=== PATIENT | female | born 1950 | race Caucasian/White ===

== ENCOUNTER 2017-03-04 08:04 | Inpatient (IN) | payer MEDICARE ==
--- NOTE | ~2017-03-04 | DS ---
Unit #: [id number] #: [id number] Patient: GATITO GREEN [id number] [address] [address] [id number] I MR#: [id number] NAME: GATITO GREEN ROOM: 47 Age: 67 Sex: F Admission Date: 03/04/2017 : 1950 Discharge Date: 03/14/2017 Attending Physician: Nida Robins M.D. Primary Care Physician: Mike Cruz M.D. DISCHARGE SUMMARY ADDENDUM Please note, this is an addendum to a previously initiated transfer of care summary done on 03/08/2017. ADDITIONAL PROCEDURES Left ienzc-wxp-rdeq amputation revision and wound closure on 03/12/2017. HOSPITAL COURSE Since last dictation, the patient has done well. With opening of the wound and several days of antibiotic therapy, the patient's leukocytosis resolved. She underwent revision of her fphdn-kmr-zpwe amputation and wound closure on 03/12/2017. Postoperatively she has done well with minimal blood loss. All signs of infection have essentially resolved. The patient has remained afebrile. Plan is to continue a few more days of IV antibiotics and the patient will be discharged to rehab with plans for likely transition to long-term care afterward. DISCHARGE CONDITION Stable. DISCHARGE DISPOSITION Discharge to rehab. DISCHARGE MEDICATIONS 1. Zosyn 3.375 g IV 1.8 h., to stop after doses on 03/16/2017. 2. Percocet 5/325 mg 1-2 tablets p.o. q.4 h. p.r.n. pain. 3. Levemir 7 units subcutaneous at bedtime. 4. NovoLog medium dose sliding scale. 5. Quinapril 5 mg daily. 6. Colace 100 mg b.i.d. 7. Metoprolol tartrate 12.5 mg b.i.d. 8. Celexa 20 mg daily. 9. Neurontin 600 mg p.o. t.i.d. DISCHARGE INSTRUCTIONS 1. The patient is instructed to have her cast remain in place upon discharge. 2. She should follow a constant carb diet. 3. She should continue Accu-Cheks morning and evening. 4. She can increase her activity as tolerated under the care of physical therapy and occupational therapy. 5. She will have a PICC remain in place until after last dose of IV antibiotics. Unit #: [id number] #: [id number] Patient: GATITO GREEN FOLLOWUP 1. The patient should follow up with Dr. Sage in approximately 10 days. Will need cast removed at that time. 2. She will follow up with facility director upon evaluation as well. Dictated by... Nida Robins M.D. DOMINICK/kaylan TD: 03/14/2017 08:20 JOB #: [id number] DISCHARGE SUMMARY Page 1 of 1 X Nida Robins MD X DISCHARGE SUMMARY
--- NOTE | ~2017-03-04 | CR126 ---
[facility] A Service of [facility] & [facility] RADIOLOGY TEXT RESULTS PATIENT: GATITO GREEN LOCATION: [facility] [id number] : 48 UNIT #: [id number] AGE: [address]: La Young MD SEX: F ORDER DR: [id number] [facility] [address] [facility]. [place], [place] [address] [id number] E MR#: [id number] Acc #: [id number] NAME: GATITO GREEN : 1950 SEX: F STUDY DATE/TIME: 03/04/2017 09:47 UNIT: DONALD ROOM: STUDY DESCRIPTION: CR Foot Complete Min 3 View Lt Attending Physician: Vangie Valencia A.P.R.N. Ordering Physician: Ed Doctor [id number] [facility] Primary Care Physician: Mike Cruz M.D. MEDICAL IMAGING REPORT This report is preliminary unless electronic signature is present EXAM Left foot 3 views 03/04/2017 0947 hours HISTORY 67-year-old with history of diabetes and recent fall. Patient has painful open wound on top of foot. COMPARISON 09/29/2016 foot film and MRI. FINDINGS The bones are diffusely osteopenic. There is an old healed distal fifth metatarsal fracture without change. There appears to be an open wound on the medial dorsal aspect of the foot near the tarsometatarsal junction adjacent to the first tarsometatarsal joint. There is lucency at the proximal aspect of the first metatarsal subjacent to the open wound representing a change from the appearance on 09/29/2016 and concerning for osteomyelitis. IMPRESSION 1. There is an open wound on the skin in the medial dorsal aspect at the level of the tarsometatarsal junction. Subjacent to the skin lesion, there is lucency at the proximal aspect of the first metatarsal representing a change from the appearance on 09/29/2016 and concerning for osteomyelitis. Consider followup MRI. The toes are difficult to assess given the degree of flexion on these views. 2. Old healed distal fifth metatarsal fracture. STAT * RESULT Dictated by... [facility] A Service of [facility] & [facility] RADIOLOGY TEXT RESULTS PATIENT: GATITO GREEN LOCATION: [employer] [facility] [id number] : [birth year] UNIT #: [id number] AGE: [address]: La Young MD SEX: F ORDER DR: Rachel Tran M.D. THIS IS AN ELECTRONICALLY VERIFIED REPORT Rachel Tran M.D. at 03/04/2017 2:29 PM NIRMALA/pankaj TD: 03/04/2017 10:39 JOB #: [id number] MEDICAL IMAGING REPORT Page 1 of 1 COPY
--- NOTE | ~2017-03-04 | EKG ---
PATIENT: GATITO GREEN UNIT #: [id number] Ventricular Rate: 74 BPM Atrial Rate: 74 BPM P-R Interval: 184 ms QRS Duration: 120 ms Q-T Interval: 532 ms QTC Calculation(Bezet): 590 ms Calculated R [place]: 31 degrees Calculated T [place]: -32 degrees Diagnosis Line: Unusual P axis, possible ectopic atrial rhythm Diagnosis Line: Inferior infarct , age undetermined Diagnosis Line: Nonspecific ST and T wave abnormality Diagnosis Line: Abnormal ECG Diagnosis Line: When compared with ECG of 04-MAR-2017 14:04, Diagnosis Line: Inferior infarct is now Present Diagnosis Line: ST no longer depressed in Anterior leads Diagnosis Line: T wave inversion no longer evident in Diagnosis Line: Anterolateral leads Diagnosis Line: QT has lengthened Diagnosis Line: Confirmed by TERA FELIX MD ([id number]) on Diagnosis Line: 03/05/2017 10:13:57 PM INTERPRETING MD: LILI
--- NOTE | ~2017-03-04 | FU ---
[facility] Nutrition Therapy DATE: 03/08/17 Patient: GATITO GREEN Physician: TONY Address: [address] Room/Bed: [address] [place] [address], Zip: [place] [address] Admit Date: 03/04/17 Date of : 48 Height: 5 4 Weight: 138 63 NUTRITION MONITORING/FOLLOW-UP: Reason: Nutrition follow-up Admitting dx: 67 y/o female admitted with L foot infection Anthropometrics: Ht: 62", admission wt: 63.5 kg, current wt: 65 kg, BMI: 25.6 (overweight) Labs: Glucose 153, POC 148, A1C 7.9 (03/05/17), AST 80 (03/05/17), Na/K/Mg WNL, Phos unmeasured Meds: Novolog (medium SSI), Levemir, IV Abx, Zofran/Phenergan prn, Milk of Mg, Colace, Kcl, MgSO4 GI: Last BM 03/03 (small), no N/V/D at this time Skin: BKA LLE, redness buttocks, no edema Estimated Nutrition Needs: Increased due to L BKA, 2 points malnutrition risk score Assessment: Chart reviewed, events noted. Patient agreed to amputation and underwent left BKA yesterday, 03/07/17. She is on 2L nasal cannula, sleeping at time of RD visit to room and unable to locate RN. Physical chart reviewed. No BM x 5 days, is on bowel regimen. She is tolerating CC diet, has Ensure ordered but no flavor or frequency is specified. RD changing to chocolate Glucerna TID based on hx DM, hyperglycemia and elevated A1C. See nutrition dx, goals and recs as stated below. Will continue to evaluate post-op oral intake, suspect current intake is suboptimal given condition, recent surgery and scored 1 point on the malnutrition risk screen for eating poorly upon admission. Dx: Inadequate protein energy intake r/t decreased appetite, PMH AEB RN report poor intake, 2 points malnutrition risk screen - ACTIVE Intervention: Glucerna shakes TID, bowel regimen Monitoring, Evaluation and Goals: 1. Oral intake > 50% of meals and ONS - NOT MET, IN PROGRESS 2. Labs WNL - IN PROGRESS (mild hyperglycemia noted) 3. Maintain weight status - IN PROGRESS (down 0.5 kg since admission but had BKA) 4. Promote wound healing - IN PROGRESS (L BKA 03/07) No new goals to add at this time [facility] Nutrition Therapy DATE: 03/08/17 Patient: GATITO GREEN Physician: TONY Address: [address] [place] [address] Room/Bed: [address] [place] [address], Zip: [place] [address] Admit Date: 03/04/17 Date of : 48 Height: 5 4 Weight: 138 63 Monitor: Per protocol, criteria to determine if above goals met Recommendations: 1. Continue consistent carb diet, appreciate staff to encourage adequate oral intake, especially of protein-rich foods. Please wake for meals. 2. RD changing oral nutrition supplement from Ensure (no frequency or flavor ordered) to chocolate Glucerna TID. Patient has increased nutrient needs. 3. Please weigh q 3 days for monitoring purposes. 4. Wound care prn. 5. Continue bowel regimen. If hyperglycemia persists consider changing SSI to high correction scale. Status: Moderate nutrition risk Respectfully, Rakel Gore, RD, LD Food and Nutritional Services [facility] cc: client file
--- NOTE | ~2017-03-04 | TOC ---
Unit #: [id number] #: [id number] Patient: GATITO GREEN [id number] [address] [place], [place] [address] [id number] I MR#: [id number] NAME: GATITO GREEN ROOM: 568 Age: 67 Sex: F Admission Date: 03/04/2017 : 1950 Attending Physician: Nida Robins M.D. Primary Care Physician: Mike Cruz M.D. TRANSFER OF CARE SUMMARY PRINCIPAL DIAGNOSES 1. Sepsis secondary to methicillin sensitivity Staph aureus and Strep agalactiae abscess and cellulitis of the left foot and calf, status post left below the knee amputation. 2. Diabetes mellitus type 2, insulin requiring and uncontrolled with hemoglobin A1c of 7.9. 3. Nonanion gap metabolic acidosis. 4. Hypokalemia. 5. Vascular dementia. 6. Peripheral arterial disease. 7. Anemia, status post transfusion of one unit of packed red blood cells. 8. Coronary artery disease. 9. Severe protein malnutrition. CONSULTANTS Dr. Sage, orthopedic surgery; Dr. Cedeno, infectious disease, Dr. Padilla, cardiology; Dr. Kohler, vascular surgery. PROCEDURE 1. Left BKA, left open on 03/07/2017. 2. Left lower extremity graft surveillance ultrasound revealing left femoral to popliteal artery bypass with elevated velocities of the common femoral artery and proximal anastomosis. 3. X-ray of left foot on 03/04/2017 with a large open wound in the medial dorsal aspect at the tarsometatarsal junction. Lucency of the first metatarsal representing osteomyelitis, old healed distal left fifth metatarsal fracture. 4. Chest x-ray on 03/04/2017 with hyperinflation of the lungs, granulomatous disease noted with ROBERT revealing moderate arterial insufficiency of the right lower extremity and mild arterial insufficiency of the left lower extremity. 5. MRI of the left foot with and without contrast on 03/04/2017 with shallow wound and ulcerations on the dorsum of the hindfoot with extensive tracking into the distal ankle on foot and up into the leg. There is a 6.4 cm fluid collection in the medial submalleolar region. It extends into the deeper soft tissue of the midfoot in the region of the cuneiforms and tracking plantar to the first metatarsal shaft. This was consistent with cellulitis and abscess. Osteomyelitis of the sesamoids, particularly laterally is probable. CLINICAL HISTORY AND HOSPITAL COURSE Ms. Green is a 67-year-old female with a history of uncontrolled diabetes and prior skin infections who presents to the Unit #: [id number] #: [id number] [facility] initially with altered mental status and subsequently found to have significant erythema and pus from the left foot. Please refer to H and P for further details. X-ray of the left foot in the emergency department revealed probable osteomyelitis. This is in conjunction with a significant leukocytosis with a white blood cell count of 34.4. The patient was subsequently admitted. Dr. Sage was consulted and upon clinical review of patient in combination with her MRI as noted above, it was recommended she undergo BKA. Patient initially refused BKA and then vacillated for approximately 60 hours before ultimately deciding to undergo BKA. She underwent this on the evening of 03/07/2017. Unfortunately the wound had be left open due to a significant amount of pus in the anterior compartment and the plan is for closure of the wound in the next four to five days[address]. Cedeno evaluated the patient, is currently being maintained on Zosyn. Wound cultures were growing Strep agalactiae group B in addition to MSSA. I will note with amputation antibiotics, white blood cell count is not decreasing. Cardiology was consulted for cardiac evaluation preoperatively and from a cardiac standpoint patient has done well. Patient is being maintained on insulin therapy in regards to her sugars and sugars are currently stable. Patient was transfused one unit of packed red blood cells with surgery. Will followup hemoglobin closely. Patient does have some underlying vascular dementia of which patient's family is aware. Will monitor this during hospitalization. Further hospital course to be dictated as an addendum. Dictated by... Nida Robins M.D. DOMINICK/vahe TD: 03/08/2017 11:30 JOB #: [id number] TRANSFER OF CARE SUMMARY Page 1 of 1 X Nida Robins MD TRANSFER OF CARE SUMMARY
--- NOTE | ~2017-03-04 | CO ---
Unit #: [id number] #: [id number] Patient: GATITO GREEN [id number] [address] [place], [place] [address] [id number] I MR#: [id number] NAME: GATITO GREEN ROOM: 568 Age: 67 Sex: F Admission Date: 03/04/2017 : 1950 Attending Physician: La Young M.D. Primary Care Physician: Mike Cruz M.D. CONSULTATION REPORT This is Marion Ramirez APRN, dictating a vascular surgery consult for physician, Dr. Kohler. REASON FOR CONSULTATION Peripheral vascular disease and new wound to left foot. HISTORY OF PRESENT ILLNESS This is a 67-year-old female who came to the emergency room with complaints of left foot pain. She has a wound to her dorsal aspect of her left foot. She states just opened two days ago. She had a known great toe wound and had a left femoral popliteal above-knee bypass with graft by Dr. Angeles, on October 04, 2016. He had followed up in office and was recommended a great toe amputation, but declined and has not followed up since. Information obtained from the chart states that the son had been changing the dressing to her left foot on March 01, he noticed that she was confused and that the dressing on her foot seemed a little tight. At that point, he removed the dressing and noticed the new foot wound. PAST MEDICAL HISTORY 1. PAD. 2. Diabetes. 3. Dementia. 4. Hypertension. 5. Chronic anemia. 6. Congestive heart failure. 7. Coronary artery disease. 8. History of cerebrovascular accident. 9. History of osteomyelitis. ALLERGIES 1. Sulfa. 2. Ibuprofen. HOME MEDICATIONS 1. Plavix 75 mg daily. 2. Accupril 10 mg daily. 3. Colace 100 mg twice daily. 4. Levemir 15 units subcutaneously at bedtime. 5. Celexa 20 mg daily. 6. Neurontin 600 mg t.i.d. Unit #: [id number] #: [id number] Patient: GATITO GREEN SOCIAL HISTORY The patient lives with her son. She smokes half pack of cigarettes a day. Denies alcohol or illicit drug use. FAMILY HISTORY No family history of diabetes. REVIEW OF SYSTEMS CONSTITUTIONAL: No fever, chills, or sweats. EYES: No recent visual problems. ENT: No ear pain, nasal congestion, or sore throat. RESPIRATORY: No shortness of breath. No cough. CARDIOVASCULAR: No chest pain, palpitations, or syncope. GASTROINTESTINAL: No nausea, vomiting, or diarrhea. GENITOURINARY: No hematuria. HEMATOLOGIC/LYMPHATIC: Negative for bruising. No swollen lymph glands. ENDOCRINE: No excessive thirst or hunger. MUSCULOSKELETAL: No back pain, neck pain, or joint pain. Has pain in her left foot and decreased range of motion at the left ankle due to pain. INTEGUMENTARY: She has an open wound with wet gangrene to the dorsal aspect of the left foot. NEUROLOGIC: She is alert and oriented x2, unsure of year. PSYCHIATRIC: No anxiety, depression, or suicidal thoughts. PHYSICAL EXAMINATION VITAL SIGNS: Her temperature is 98.1, heart rate 98, respiratory rate 16, and blood pressure is 154/81. GENERAL APPEARANCE: She is a frail female, lying on the stretcher in a position. HEENT: Normocephalic. Pupils are equal, round, and reactive to light. NECK: Supple and nontender without lymphadenopathy. No masses or thyromegaly. No carotid bruits noted. CARDIAC: Regular rate and rhythm. No murmurs. LUNGS: Clear to auscultation. ABDOMEN: Positive bowel sounds. Soft, nontender, and nondistended. No masses. MUSCULOSKELETAL: Moves all extremities except for the left foot, which is limited due to the pain. Normal muscular development. EXTREMITIES: Upper extremities, no deformity noted and no edema. Lower extremities, she has a right great toe amputation. Left foot dorsal aspect has an open wound with green drainage, no odor noted. No signal noted to PT, DP. VASCULAR: She has palpable femoral pulses bilaterally, but weaker on the left. Palpable popliteal on the right than on the left. Unable to obtain signal in the posterior tibial and DP of the left foot due to the pain. INTEGUMENTARY: Skin is warm and dry. She has an open wound to the dorsal aspect of the left foot with green drainage. No hemosiderin deposition. NEUROLOGIC: Cranial nerves II through XII intact. Normal strength and sensation in the upper extremities. Lower is unequal due to the pain in the left leg. PSYCHIATRIC: She is oriented to person and place, but disoriented to time. DIAGNOSTIC STUDIES ABIs and graft scan. LABORATORY RESULTS: Glucose is 176, BUN is 27, creatinine is 1.0, chloride 105, CO2 of 16, sodium is 135, and potassium 2.7. White blood cell count 34.4, hemoglobin 10.8, hematocrit 33.4, and platelet count is Unit #: [id number] #: [id number] Patient: GATITO GREEN. ASSESSMENT AND PLAN She has peripheral arterial disease with nonhealing wound to the left foot with wet gangrene. ABIs and graft scan ordered of the left leg. We will discuss further treatment with attending. Dictated by... Sasha Galicia/ventura TD: 03/05/2017 14:12 JOB #: [id number] CONSULTATION REPORT Page 1 of 1 X Olga Kohler MD X CONSULTATION REPORT
--- NOTE | ~2017-03-04 | DS ---
Unit #: [id number] #: [id number] Patient: GATITO GREEN [id number] [address] [address] [id number] I MR#: [id number] NAME: GATITO GREEN ROOM: 47 Age: 67 Sex: F Admission Date: 03/04/2017 : 1950 Discharge Date: Attending Physician: Nida Robins M.D. Primary Care Physician: Mike Cruz M.D. DISCHARGE SUMMARY ADDENDUM Please note medications have been adjusted per ID. We are going to discontinue Zosyn and place the patient on Augmentin 875 mg p.o. b.i.d. through March 23, 2017, and PICC line will be discontinued prior to discharge. Dictated by... Sasha Oliveros/jarett TD: 03/14/2017 11:18 JOB #: [id number] DISCHARGE SUMMARY Page 1 of 1 X Nida Robins MD X DISCHARGE SUMMARY
--- NOTE | ~2017-03-04 | FU ---
[facility] Nutrition Therapy DATE: 03/13/17 Patient: GATITO GREEN Physician: TONY Address: [address] Room/Bed: [address] [place] [address], Zip: [place] [address] Admit Date: 03/04/17 Date of : 48 Height: 5 4 Weight: 143 65 NUTRITION MONITORING/FOLLOW-UP: Reason: PT SEEN FOR FOLLOW-UP DX: (L) FOOT INFECTION Anthropometrics: 5'2", WT: 143# (65 KG), BMI: 26.2 -WEIGHTS HAVE BEEN STABLE SINCE ADMIT Labs: GLU: 134, NA+:132, CA+:7.7, ALB: 1.7 (03/05/17), A1c: 7.9 (03/05/17) Meds: ZOFRAN, PHENERGAN, MILK OF MAGNESIA, NOVOLOG MED SSI, LEVEMIR, COLACE, KCL, MAG SULFATE, LOPRESSOR I&O's: 2230/1676, 1 BM NOTED Skin: (L) BKA LLE EDEMA: RLE GENERALIZED EDEMA; BUE 1+ EDEMA Estimated Nutrition Needs: INCREASED NEEDS 2' (L) BKA Assessment: CHART REVIEWED AND EVENTS NOTED. PT SEEN FOR FOLLOW-UP. PT SLEEPY/LETHARGIC AT TIME OF VISIT. LUNCH TRAY AT BEDSIDE HAS NOT BEEN TOUCHED YET. FAMILY IN ROOM REPORT PT TO HAVE DECREASED PO INTAKE 2' DECREASED APPETITE. THIS RD ENCOURAGED ADEQUATE KCAL AND PROTEIN INTAKE FOR HEALING AND RECOVERY. PER [employer], ENSURE HAS BEEN GIVEN (NO FLAVOR OR FREQUENCY SPECIFIED), PT AND DAUGHTER REQUEST GLUCERNA MIKE, RD TO RE-ORDER. PT AND FAMILY REPORTED NO DIET QUESTIONS AT THIS TIME. RD TO CONTINUE TO FOLLOW. Dx: INADEQUATE PROTEIN-ENERGY INTAKE R/T DECREASED APPETITE, PMH AEB RN REPORT POOR INTAKE, 2 NUTRITION MALNUTRITION SCREEN SCORE.-ACTIVE INADEQUATE PROTEIN-ENERGY INTAKE R/T DECREASED APPETITE, PMH, CURRENT CONDITION AEB FAMILY REPORT ABOVE. Intervention: 1. CC DIET 2. D/C ENSURE SHAKES 3. GLUCERNA SHAKES TID (JIM) Monitoring, Evaluation and Goals: 1. ORAL INTAKE >50% OF MEALS AND ONS-NOT MET, IN PROGRESS 2. LABS WNL-IN PROGRESS 3. MAINTAIN WEIGHT STATUS; IN PROGRESS 4. PROMOTE WOUND HEALING-IN PROGRESS (L BKA 03/07/17) NO NEW GOALS AT THIS TIME [facility] Nutrition Therapy DATE: 03/13/17 Patient: GATITO GREEN Physician: TONY Address: [address] Room/Bed: [address] [place] [address], Zip: [place] [address] Admit Date: 03/04/17 Date of : 48 Height: 5 4 Weight: 143 65 MONITOR: -PO INTAKE/APPETITE -WEIGHTS -SUPPLEMENT INTAKE Recommendations: 1. APPRECIATE FAMILY AND STAFF TO ENCOURAGE ADEQUATE PO INTAKE, ESPECIALLY PROTEIN SOURCES. PLEASE WAKE FOR MEALS. 2. PLEASE D/C ENSURE SHAKES. ADD GLUCERNA SHAKES TID W/MEALS FOR ADDITIONAL PROTEIN AND KCAL NEEDS 3. PLEASE WEIGH PT q 3 DAYS FOR MONITORING PURPOSES 4. WOUND CARE PRN RD WILL F/U PER PROTOCOL PT IS MODERATELY COMPROMISED Respectfully, MIC SCHROEDER MS, RD, LD Food and Nutritional Services [facility] cc: client file
--- NOTE | ~2017-03-04 | US136 ---
[facility] A Service of [facility] RADIOLOGY TEXT RESULTS PATIENT: GATITO GREEN LOCATION: [facility] 472- : [birth year] UNIT #: [id number] AGE: [address]: Nida Robins MD SEX: F ORDER DR: [id number] [facility] [address] [facility] [place], [place] [address] [id number] I MR#: [id number] Acc #: [id number] NAME: GATITO GREEN : 1950 SEX: F STUDY DATE/TIME: 03/04/2017 15:45 UNIT: [facility] ROOM: [facility] STUDY DESCRIPTION: US U/L Ext [employer] Bilat Attending Physician: Nida Robins M.D. Ordering Physician: Eleuterio Angeles M.D. Primary Care Physician: Mike Cruz M.D. MEDICAL IMAGING REPORT This report is preliminary unless electronic signature is present EXAM Bilateral lower extremity ROBERT. HISTORY Peripheral arterial disease; left foot wound. FINDINGS The right brachial pressure was not obtained. The left was 122. Right dorsalis pedis pressure is 71, posterior tibial is 78, for an ROBERT of 0.64, and a right first toe pressure was not obtained. Left dorsalis pedis pressure is 104, posterior tibial is 108, for an ROBERT of 0.89 and a left first toe pressure was not obtained. PVR wave form at the right ankle is significantly diminished, as compared to the more normal-appearing left ankle wave form. Arterial wave forms of the dorsalis pedis and posterior tibial arteries are biphasic at both bilateral. IMPRESSION 1. Moderate arterial insufficiency of the right lower extremity, based on ROBERT and wave forms. 2. Mild arterial insufficiency of the left lower extremity, based on ROBERT and wave forms. Dictated by... Olga Kohler M.D. THIS IS AN ELECTRONICALLY VERIFIED REPORT Olga Kohler M.D. at 03/13/2017 8:00 AM [facility] A Service of [facility] RADIOLOGY TEXT RESULTS PATIENT: GATITO GREEN LOCATION: [facility] 472-01 : [birth year] UNIT #: [id number] AGE: [address]: Nida Robins MD SEX: F ORDER DR: Mynor TD: 03/05/2017 20:19 JOB #: [id number] MEDICAL IMAGING REPORT Page 1 of 1 COPY
--- NOTE | ~2017-03-04 | OR ---
Unit #: [id number] #: [id number] Patient: GATITO GREEN [id number] [address] [place], [place] [address] [id number] I MR#: [id number] NAME: GATITO GREEN ROOM: 47 Date of Procedure: 03/12/2017 Admission Date: 03/04/2017 Surgeon: Luis Carlos Sage M.D. : 1950 Attending Physician: Nida Robins M.D. Primary Care Physician: Mike Cruz M.D. OPERATIVE REPORT PREOPERATIVE DIAGNOSIS Open left lccud-cpg-vxzb amputation. POSTOPERATIVE DIAGNOSIS Open left lswmo-orr-weqs amputation. PROCEDURE PERFORMED Left hkdzz-vjs-jvrq amputation revision and wound closure ([id number]). ASSISTANTS Sasha Santiago; Sasha Willis; and OSCAR Roper. ANESTHESIA General. INDICATIONS FOR SURGERY The patient is a 67-year-old diabetic female who had a history of left foot gangrene, who underwent open left stikn-pkq-kfct amputation 5 days ago. She is now ready for wound closure. DESCRIPTION OF PROCEDURE The patient was taken to the operating room and placed in supine position. General anesthetic was induced. The left leg was identified as the correct operative extremity during the time-out procedure. The IV antibiotic protocol was not followed because she was on preoperative antibiotics. The left leg was then prepped and draped in the usual sterile fashion. The leg was exsanguinated and a thigh tourniquet inflated to 300 mmHg. All necrotic tissue was sharply excised. The anterior skin was excised for an additional 3 cm. The tibia was then exposed with subperiosteal dissection and an additional 4 cm of tibia were cut with the sagittal saw. The anterior distal tibia was beveled with the saw. The fibula was then exposed subperiosteally and cut 2 cm shorter than the tibia. The tourniquet was released. Bleeding was controlled with electrocautery. A medium Hemovac drain was placed. The posterior muscle fascia was repaired to the anterior periosteum of the tibia and the anterior muscle fascia with multiple 0 Vicryl rryhvh-he-wapxo sutures. Subcutaneous tissue was closed with 2-0 Vicryl. Skin was closed with skin donal. Xeroform gauze, dressing, sponges, cast padding, and a long leg fiberglass cast was applied. The patient was then transported to the recovery room in stable condition. Unit #: [id number] #: [id number] Patient: GATITO GREEN ESTIMATED BLOOD LOSS Minimal. COMPLICATIONS None. SPECIMENS None. TOURNIQUET TIME Approximately 20 minutes. Dictated by.Sasha Snowden/ventura TD: 03/13/2017 07:39 JOB #: [id number] OPERATIVE REPORT Page 1 of 1 X Tam Sage MD X PROCEDURE OPERATIVE NOTE
--- NOTE | ~2017-03-04 | CR72 ---
[facility] A Service of [facility] RADIOLOGY TEXT RESULTS PATIENT: GATITO GREEN LOCATION: C5 568-01 : 48 UNIT #: [id number] AGE: [address]: Nida Robins MD SEX: F ORDER DR: [id number] [facility] [address] [facility]. [place], [place] [address] [id number] I MR#: [id number] Acc #: [id number] NAME: GATITO GREEN : 1950 SEX: F STUDY DATE/TIME: 03/04/2017 14:04 UNIT: CEDOF ROOM: 90990 STUDY DESCRIPTION: CR Chest Single View Portable Attending Physician: La Young M.D. Ordering Physician: La Young M.D. Primary Care Physician: Mike Cruz M.D. MEDICAL IMAGING REPORT This report is preliminary unless electronic signature is present EXAM Portable chest x-ray, 03/04/2017. HISTORY MD order couple days ago. Short of air, left foot infection, diabetic. Symptoms began a couple days ago. Smoker 47 years. Diabetic. Mild heart attack. TECHNIQUE AP radiograph of the chest is presented. COMPARISON 09/28/2016 FINDINGS Stable mild to moderate cardiac enlargement. The lungs appear somewhat hyperinflated, likely reflecting underlying COPD in this patient with a history of tobacco usage. No evidence of acute pulmonary disease, pleural effusion, or pneumothorax. No suspicious nodule. Healed granulomatous disease seen. The bony structures show no acute abnormality. Dictated by... Bala Garcia M.D. THIS IS AN ELECTRONICALLY VERIFIED REPORT Bala Garcia M.D. at 03/07/2017 8:26 AM NORMAN/panda TD: 03/04/2017 16:40 JOB #: [id number] [facility] A Service of [facility] RADIOLOGY TEXT RESULTS PATIENT: GATITO GREEN LOCATION: [facility] 568-01 : 48 UNIT #: [id number] AGE: [address]: Nida Robins MD SEX: F ORDER DR: MEDICAL IMAGING REPORT Page 1 of 1 COPY
--- NOTE | ~2017-03-04 | EKG ---
PATIENT: GATITO GREEN UNIT #: [id number] Ventricular Rate: 88 BPM Atrial Rate: 89 BPM QRS Duration: 118 ms Q-T Interval: 372 ms QTC Calculation(Bezet): 450 ms Calculated R [place]: 59 degrees Calculated T [place]: 111 degrees Diagnosis Line: Unusual P axis, possible ectopic atrial rhythm Diagnosis Line: with occasional Premature ventricular complexes Diagnosis Line: Non-specific intra-ventricular conduction delay Diagnosis Line: Nonspecific ST and T wave abnormality Diagnosis Line: Abnormal ECG Diagnosis Line: When compared with ECG of 06-OCT-2016 06:23, Diagnosis Line: T wave inversion now evident in Inferior leads Diagnosis Line: Inverted T waves have replaced nonspecific T wave Diagnosis Line: abnormality in Lateral leads Diagnosis Line: QT has shortened Diagnosis Line: Confirmed by TERA FELIX MD ([id number]) on Diagnosis Line: 03/04/2017 10:56:05 PM INTERPRETING MD: LILI
--- NOTE | ~2017-03-04 | CO ---
Unit #: [id number] #: [id number] Patient: GATITO GREEN [id number] [address] [place], [place] [address] [id number] I MR#: [id number] NAME: GATITO GREEN ROOM: 568 Age: 67 Sex: F Admission Date: 03/04/2017 : 1950 Attending Physician: Nida Robins M.D. Primary Care Physician: Mike Cruz M.D. CONSULTATION REPORT REASON FOR CONSULTATION Antibiotic management in a patient with severe left foot wound. HISTORY OF PRESENT ILLNESS This is a 67-year-old female who came to the emergency room because her son was reporting that she had increasing confusion and worsening foot wound for approximately 1 week. The patient does not recall coming to the hospital. She is a diabetic with uncontrolled blood sugars and has a history of peripheral vascular disease as well. The patient does not have any family at her bedside right now and history is obtained via the chart and discussion with the patient. The patient's wound on her left foot is severe. There is significant wet gangrene and tenderness and the patient refuses sqwao-xxk-ywss amputation which has been recommended to her by both the orthopedic surgeon and the vascular team which is following this patient. It appears the patient has had some vascular intervention in the past. It appears the orthopedist notes that she has had a long-term first metatarsal head ulcer/wound since 07/2016 that he has been doing wound care to. The patient, however, one week ago developed a significant wound on the dorsal aspect of her left foot. On admission the patient was noted to have some leukocytosis, weakness and some confusion. The patient is status post left femoral popliteal bypass in 09/2016. She has also had a recent MRI this admission that showed multiple fluid collections and question able septic MTP joint. The patient has maintained on vancomycin and Zosyn and infectious disease was asked to evaluate for antibiotic management as the patient is adamantly refusing a febud-oqd-ndhi amputation. PAST MEDICAL HISTORY 1. Insulin dependent diabetes. 2. Peripheral vascular disease. 3. Dementia. 4. Hypertension. 5. Chronic anemia. 6. Congestive heart failure. 7. Coronary artery disease. 8. Stroke. 9. Right helix osteomyelitis, status post amputation. 10. Left foot MTP joint sepsis in the past. PAST SURGICAL HISTORY 1. Right great toe amputation. 2. Throat surgery. 3. Left femoral popliteal bypass. 4. Cardiac catheterization. Unit #: [id number] #: [id number] Patient: GATITO GREEN SOCIAL HISTORY The patient lives alone, but has good family support. She denies any tobacco or alcohol abuse. ALLERGIES Sulfa and ibuprofen. CURRENT MEDICATIONS The patient is currently on vancomycin and Zosyn. For further medications, please refer to the patient's MAR. REVIEW OF SYSTEMS The patient continues to tell me that she would like to eat and drink and not have surgery. Otherwise it is very limited to get review of systems. PHYSICAL EXAMINATION GENERAL: This is a no-apparent distress female who is laying in the bed and appears slightly confused. VITALS: Temperature 98.0, pulse 82, blood pressure 121/63 and respiratory rate 18. HEENT: Pupils are sluggish. NECK: Supple. LUNGS: Clear to auscultation bilaterally with no wheezes or rhonchi noted. HEART: S1 and S2 with tachycardia. ABDOMEN: Positive bowel sounds. Nontender. EXTREMITIES: Left foot has a large dorsal wound that has significant purulence and slough. There is no significant odor. On the plantar surface there is a large ulcer near her first MTP/great toe. DIAGNOSTIC STUDIES IMAGING: MRI of the foot, please see full report for complete details. In summary, shallow wound/ulcer along the dorsum of the hindfoot that tracks even to the distal ankle and foot with a 6.4 cm fluid collection that extends deeper into the soft tissues, consistent with extensive cellulitis and tracking abscess. Possible necrotizing fasciitis. Ulceration of the foot and metatarsal head with tracking with fluid, concerning for septic arthritis of the first MTP joint, osteomyelitis of the sesamoids is possible, tenosynovitis, tibiotalar effusion indeterminate of septic arthritis. Chest x-ray no active pulmonary disease. LABORATORY: BUN 22, creatinine 0.9, sodium 135, potassium 3.0, chloride 110, CO2 16, bilirubin 1.4, AST 80, ALT 37, alkaline phosphatase 121, lactic acid 0.9, vancomycin trough 22.7, white blood cell count 23,000, which is improved from 34,000 on admission. Hemoglobin 8, hematocrit 24.9, platelets 470. Urinalysis shows white blood cell count 5-10, negative bacteria, 1+ leukocytes and negative nitrates. Microbiology, urine culture is negative. Blood cultures are negative. Foot culture shows staph aureus, (final ID is pending) and group B strep. IMPRESSION/PLAN This is a 67-year-old diabetic female with extensive peripheral arterial disease and vascular disease. Per the chart, the patient has an ROBERT of Unit #: [id number] #: [id number] Patient: GATITO GREEN 0.89. The patient has large left dorsal foot wound and foot exudate and slough, concerning for wet gangrene and an ulcer on the plantar surface and of the first great toe. MRI is consistent with multiple fluid collections, cellulitis, possible necrotizing fasciitis and questionable osteomyelitis of the first MTP joint. At this time the patient does not have any bacteremia. Wound cultures are showing both staph aureus and group B strep. Will continue to follow along with the final identification of the staph infection. At this time I agree with orthopedic surgery and vascular as well as the admitting team that the best course of action would be extensive surgery and ghksz-kdy-qrbh amputation. At this time, per the chart and per discussion with the patient, the patient refuses a cwhzj-tfc-biok amputation or surgery. Without surgical intervention, resolution of this infection is doubtful. The patient may become septic and toxic. Will continue to treat left foot wound as wet gangrene, abscess and possible septic MTP joint with possible necrotizing fasciitis as per the orthopedic note. The wound continuous is getting worse. Will continue vancomycin and Zosyn at this time. Will discuss with Dr. Diego Nelson the role of antibiotics and if long-term antibiotics would even be beneficial at this time. Thank you for allowing us to participate in the care of this patient. Further recommendations to follow pending the patient's clinical course. Dictated by... Jenelle Rosas A.P.R.N. for Sasha Umaña TD: 03/06/2017 08:18 JOB #: [id number] CONSULTATION REPORT Page 1 of 1 X X CONSULTATION REPORT
--- NOTE | ~2017-03-04 | CO ---
Unit #: [id number] #: [id number] Patient: GATITO GREEN [id number] [address] [place], [place] [address] [id number] MR#: [id number] NAME: GATITO GREEN ROOM: 568 Age: 67 Sex: F Admission Date: 03/04/2017 : 1950 Attending Physician: La Yougn M.D. Primary Care Physician: Mike Cruz M.D. Consultation Date: 03/04/2017 CONSULTATION REPORT CHIEF COMPLAINT Left foot infection. HISTORY OF PRESENT ILLNESS The patient is a 67-year-old female, who lives alone, who presents to the emergency room today with a 1-week history of increasing left foot infection. She has a previous history of poorly controlled diabetes, peripheral vascular disease, coronary artery disease, CHF, stroke, and dementia. She is accompanied by her son, who is a good historian. He notes that she has had a wound under her first metatarsal head since 07/2016 and home health care has been addressing this additionally. The patient's son and tt-puyatbkm-hg-law have also been applying Medihoney to the foot. One week ago, the patient then developed a significant wound over the dorsal aspect of the left foot and the son noted that she was confused. She was then taken to the emergency room today. She was found to have a white blood cell count of 34,000. The patient has difficulty walking and has generalized weakness, and she is a very poor historian. Of concern is that she underwent recent left femoral popliteal bypass in 09/2016 and she also underwent recent cardiac catheterization which shows coronary artery disease and an ejection fraction of 45%. Orthopedic consultation is requested for the left foot. PAST MEDICAL HISTORY Remarkable for insulin-dependent diabetes, peripheral vascular disease, dementia, hypertension, chronic anemia, congestive heart failure, coronary artery disease, history of stroke, history of right hallux osteomyelitis, status post hallux amputation, and recent admission for left foot first MTP joint sepsis. PAST SURGICAL HISTORY Remarkable for right great toe amputation, throat surgery, left femoral popliteal bypass, and cardiac catheterization. HOME MEDICATIONS Plavix, Accupril, Colace, Levemir insulin, Celexa, Neurontin, and Glucotrol. ALLERGIES Sulfa and ibuprofen. SOCIAL HISTORY The patient lives alone although the son checks on her several times a day. She denies tobacco or alcohol use. Unit #: [id number] #: [id number] Patient: GATITO GREEN REVIEW OF SYSTEMS Unremarkable except for baseline dementia. PHYSICAL EXAMINATION GENERAL: This is an elderly female, who appears older than her stated age. VITAL SIGNS: Temperature 98.1, blood pressure 143/89, pulse 98, respirations 14. Height 5 feet and 4 inches. Weight 150 pounds. EXTREMITIES: Examination of the left foot shows wet gangrene of the dorsal forefoot and midfoot with about an 8 cm diameter full-thickness skin loss with exposed necrotic tendons. She also has a 1 cm diameter plantar ulcer underlying the first metatarsal head. Pulses are absent. Sensation is intact to light touch. The patient has significant pain with palpation of the foot, ankle, and calf. I suspect she has infection tracking into her legs. DIAGNOSTIC STUDIES Left foot x-ray show lucency at the base of the first metatarsal consistent with possible osteomyelitis. LABORATORY DATA Admission labs, hemoglobin 10.8, hematocrit 33.4, white blood cell count 34,400 with 91% polys and 2% lymphocytes. IMPRESSION 1. Left foot wet gangrene. 2. Peripheral vascular disease, on Plavix. 3. History of stroke. 4. Coronary artery disease. 5. Congestive heart failure. 6. Insulin-dependent diabetes. PLAN 1. Await MRI of the left foot. 2. Await results of arterial brachial indices. 3. The patient most likely requires a flbik-hqy-cokx amputation. The patient adamantly refuses any amputation at the bed side. I have advised the patient and her son, this is potentially life threatening due to her leukocytosis, pain, and calf swelling. The patient understands. We will follow closely during this admission and make further recommendations as warranted. Dictated by... Luis Carlos Sage M.D. AISHA/ventura TD: 03/05/2017 16:10 JOB #: [id number] CC: Luis Carlos Sage M.D. Unit #: [id number] #: [id number] Patient: GATITO GREEN CONSULTATION REPORT Page 1 of 1 X Tam Sage MD CONSULTATION REPORT
--- NOTE | ~2017-03-04 | CO ---
Unit #: [id number] #: [id number] Patient: GATITO GREEN [id number] [place], [place] [address] [id number] I MR#: [id number] NAME: GATITO GREEN ROOM: 568 Age: 67 Sex: F Admission Date: 03/04/2017 : 1950 Attending Physician: La Young M.D. Primary Care Physician: Mike Cruz M.D. Consultation Date: 03/04/2017 CONSULTATION REPORT REASON FOR CONSULTATION Preoperative clearance. HISTORY OF PRESENT ILLNESS This is 67-year-old white female, previously known to our group with a past medical history of; 1. Admission to [facility] on 09/28/2016 through 10/08/2016 for sepsis with the left first metatarsophalangeal septic arthritis; DKA; and peripheral artery disease, status post left femoral-popliteal bypass. 2. Complicated hospital course with acute kidney injury, toxic metabolic encephalopathy, hypernatremia, and probable dementia. 3. A 2D echocardiogram 10/02/2016, revealed an ejection fraction 40% to 45. Inferolateral hypokinesis. Mild tricuspid regurgitation. Small pericardial effusion versus fat pad. 4. Coronary artery disease, status post cardiac catheterization on 10/03/2016, which revealed ejection fraction of 45%. Left main is normal. LAD is 50% involving the second diagonal. Distal to the second diagonal 60% to 70%. Left circumflex is 99% in proximal third. First obtuse marginal is 99%. LAD is 100%. PDA with collateral flow. PLV is 90%. Distal right coronary artery 99%. Marginal branch of left circumflex is less than 1.5 mm in diameter and not amenable to angioplasty or stent. Right coronary artery is occluded and fills by retrograde left to right collaterals. PLV of right coronary artery is not bypassable. Medical therapy. 5. Hypertension. 6. Diabetes mellitus type 2, uncontrolled. 7. Dementia, likely vascular in origin. 8. Chronic anemia. 9. Chronic non-anion gap metabolic acidosis secondary to renal tubular acidosis. 10. Chronic systolic congestive heart failure. 11. History of cerebrovascular accident reportedly a couple of years ago. 12. History of osteomyelitis, status post right great toe amputation. 13. Active tobacco abuse. PAST SURGICAL HISTORY 1. Cardiac catheterization. 2. Right great toe amputation. 3. Left femoral leoyl-pri-srnw popliteal bypass. 4. Throat surgery. HOME MEDICATIONS 1. Plavix 75 mg p.o. daily. Unit #: [id number] #: [id number] Patient: GATITO GREEN 2. Quinapril 10 mg p.o. daily. 3. Colace 100 mg p.o. b.i.d. 4. Levemir 15 units subcutaneous at bedtime. 5. Celexa 20 mg p.o. daily. 6. Neurontin 600 mg p.o. three times daily. 7. Glipizide 5 mg p.o. daily. ALLERGIES Sulfa, ibuprofen, and latex. SOCIAL HISTORY The patient lives in a private residence. She uses a walker to ambulate. She continues to actively smoke cigarettes, but will not tell me how much. She has smoked for approximately 47 years. There are no reports of alcohol or illicit drug use. FAMILY HISTORY Noncontributory. REVIEW OF SYSTEMS A 10-point review of systems is negative except for the details noted above. Please note that the patient was not forthcoming with all information and information was obtained with the help of her son. PHYSICAL EXAMINATION VITAL SIGNS: Temperature 98.4, pulse is 90, and blood pressure 107/55. CONSTITUTIONAL: This is a 67-year-old, white female, and in no distress. SKIN: Warm and dry. NECK: Supple. No jugular venous distention. No hepatojugular reflux. Normal carotid upstrokes. No carotid bruits auscultated. HEART: S1 and S2. No murmurs, rubs, or gallops. LUNGS: Bilateral breath sounds. Have occasional rhonchi. Scattered rhonchi in the left lung. Respirations are even and nonlabored. No rales or wheezes. ABDOMEN: Soft, nontender, and nondistended. Positive bowel sounds auscultated x4 quadrants. No ascites noted. EXTREMITIES: Bilateral lower extremities have no pretibial pitting edema. DP and PT pulses are 2+. Capillary refill is less than 2 seconds. DIAGNOSTIC STUDIES LABORATORY RESULTS: White blood cell count 34.4, hemoglobin 10.8, hematocrit 33.4, and platelets 420. Sodium 135, potassium 2.7, chloride 105, CO2 is 16, BUN 27, creatinine 1.0, and glucose 176. AST 45, ALT 26, and alkaline phos 98. Urinalysis with 1+ leuk esterase, 3+ protein, and 2+ blood. IMAGING STUDIES: Chest x-ray is pending. CARDIOVASCULAR STUDIES: Electrocardiogram revealed accelerated junctional rhythm with PVC. Ventricular rate , 88 beats per minute. Nonspecific ST-T wave changes. QTc is 450 milliseconds. IMPRESSION 1. Left foot ulcer. 2. Leukocytosis, rule out sepsis. 3. Rule out pneumonia. 4. Status post fall. 5. Peripheral artery disease with history of left femoral-popliteal Unit #: [id number] #: [id number] Patient: GATITO GREEN bypass. 6. Coronary artery disease, status post cardiac catheterization on 10/03/2016 with multivessel disease, managed medically. 7. Left ventricular ejection fraction, 45%. 8. Chronic systolic congestive heart failure. 9. Hypertension. 10. Diabetes mellitus, type 2. 11. Active tobacco abuse. 12. Diabetes. 13. Hypokalemia. 14. Anemia. 15. Accelerated junctional rhythm. PLAN 1. The patient presented to the hospital after sustaining a fall. She was noted to have left foot pain with a large ulcer with purulent drainage. 2. Vascular and Orthopedic Surgery were consulted. Cardiology was consulted for preoperative clearance in case surgery is needed. 3. The patient denies chest pain and there is no evidence of congestive heart failure on exam. 4. She is okay to undergo surgery at an acceptable risk if needed. 5. She is on a low-dose beta-emily with parameters. Her Accupril has been decreased. 6. Chest x-ray has been ordered to rule out pneumonia. 7. The patient was on Plavix at home and this has been held in case surgery is needed. I could consider adding an aspirin and statin due to known coronary artery disease. Dictated by... VEGA Downs/ventura TD: 03/05/2017 14:08 JOB #: [id number] CONSULTATION REPORT Page 1 of 1 X X CONSULTATION REPORT
--- NOTE | ~2017-03-04 | MR58 ---
[facility] A Service of [facility] RADIOLOGY TEXT RESULTS PATIENT: GATITO GREEN LOCATION: [facility] 568-01 : 48 UNIT #: [id number] AGE: [address]: La Young MD SEX: F ORDER DR: [id number] [facility] [address]. [place], [place] [address] [id number] I MR#: [id number] Acc #: [id number] NAME: GATITO GREEN : 1950 SEX: F STUDY DATE/TIME: 03/04/2017 21:06 UNIT: [facility] ROOM: [facility] STUDY DESCRIPTION: MR Foot WWo Contrast Lt Attending Physician: La Young M.D. Ordering Physician: La Young M.D. Primary Care Physician: Mike Cruz M.D. MRI CENTER REPORT This report is preliminary unless electronic signature is present. EXAM MRI left distal lower leg, ankle, and hindfoot without and with IV contrast 03/04/2017 HISTORY Order states MRI with and without IV contrast left foot. History sheet states left foot infection. Midfoot covered in sores. Sore mid distal lower leg. Left foot pain for 4 days with open sores in the midfoot. Surgery left great toe previously. No reported trauma. Diabetic. Diabetic neuropathy. FINDINGS There is multifocal subtle suspected skin irregularity and/or wounds along the dorsal aspect of the hindfoot. The largest presumed wound or ulceration measures 1.2 cm in transverse dimension. Tracking from the superficial wounds or ulcerations is extensive nonenhancing subcutaneous space subcutaneous soft tissue compatible with complex signal fluid/tracking abscess and/or underperfused or nonperfused soft tissue. The abnormality has a more typical fluid signal medially superficial to the flexor tendons at the level of the submalleolar segment. This potential abscess or developing abscess measures at least 6.4 cm AP. There is a small amount of underlying fluid in the posterior tibial tendon sheath. Mild septic tenosynovitis is possible. The tracking subcutaneous space fluid and/or underperfused/nonperfused soft tissue tracks into the lower leg beyond the margin of the images. There is also distal tracking of the nonenhancing fluid and/or nonperfused/underperfused soft tissue into the forefoot predominantly in the medial aspect and surrounding the cuneiforms and metatarsal bases. There is no obvious susceptibility signal or signal void to suggest soft tissue gas. Nevertheless, necrotizing fasciitis and/or extensive cellulitis could have this appearance. [facility] A Service of [facility] RADIOLOGY TEXT RESULTS PATIENT: GATITO GREEN LOCATION: [facility] 568-01 : 48 UNIT #: [id number] AGE: [address]: La Young MD SEX: F ORDER DR: This tracking fluid and/or underperfused/nonperfused soft tissue tracks into the plantar medial forefoot to the level of the midshaft of the first metatarsal. There is also skin loss suggestive of a wound or ulceration of the medial aspect of the forefoot at the level of the first metatarsal head and first MTP joint. There is a nonenhancing tracking fistulous tract and/or necrotic tissue extending to potentially communicate with the first MTP joint. First MTP joint septic arthritis is a concern. There is marrow edema but no T1 marrow replacement at the first MTP joint and no definite evidence of osteomyelitis of the first metatarsal head or proximal phalanx. There is however marked abnormal signal with T1 marrow replacement of the lateral sesamoid and prominent abnormal signal of the medial sesamoid raising the possibility of sesamoid osteomyelitis. There is no fracture. No dislocation or definite neuropathic arthrosis is seen. There is advanced muscle atrophy throughout the ankle and foot. There is nonenhancing fluid involving the extensor tendon sheaths in the lower leg, ankle and hindfoot concerning for septic tenosynovitis. There is a mild nonspecific tibiotalar effusion. There is mild synovial enhancement. Septic arthritis is not excluded. No tendon tear is noted. IMPRESSION 1. Apparent shallow wound/ulcerations along the dorsum of the hindfoot with extensive tracking nonenhancing complex signal fluid and/or underperfused/nonperfused soft tissue extending from the distal dorsal lower leg into the distal ankle and foot. There is an at least 6.4 cm (AP) fluid collection in the medial submalleolar region. The process extends into the deeper soft tissues of the midfoot predominantly in the region of the cuneiforms with tracking plantar to the first metatarsal shaft. Findings are compatible with extensive cellulitis and tracking abscess and/or nonperfused/underperfused soft tissue. Correlate for necrotizing fasciitis. No obvious gas is identified. 2. Apparent additional skin wound or ulceration medial to the first metatarsal head with a tracking nonenhancing fluid and/or underperfused/nonperfused soft tissue extending to probably involving the first MTP joint. Findings are concerning for septic arthritis of the first MTP. The first MTP joint is arthropathic. Osteomyelitis of the sesamoids (especially lateral) is possible. 3. Tenosynovitis of the anterior extensor tendons extending into the lower leg could reflect infectious tenosynovitis. 4. Tibiotalar effusion with mild synovial enhancement is indeterminate [facility] A Service of [facility] RADIOLOGY TEXT RESULTS PATIENT: GATITO GREEN LOCATION: [facility] 568-01 : 48 UNIT #: [id number] AGE: [address]: La Young MD SEX: F ORDER DR: for definite septic arthritis. Consider aspiration as clinically warranted. 5. No fracture or definite evidence of neuropathic arthropathy. 6. Advanced fatty atrophy of the muscles most commonly due to chronic neuropathy. 7. No fracture. 8. Findings called directly to Dr. Robins of [facility] on 03/05/2017 at 09:45 a.m. STAT * RESULT Dictated by... Antonieta Christine M.D. THIS IS AN ELECTRONICALLY VERIFIED REPORT Antonieta Christine M.D. at 03/05/2017 11:17 AM ERICA/pankaj TD: 03/05/2017 10:46 JOB #: [id number] MRI CENTER REPORT Page 1 of 1 COPY
--- NOTE | ~2017-03-04 | HP ---
Unit #: [id number] #: [id number] Patient: GATITO GREEN [id number] [address] [place], [place] [address] [id number] MR#: [id number] NAME: GATITO GREEN ROOM: Age: 67 Sex: F Admission Date: 03/04/2017 : 1950 Attending Physician: Vangie Valencia A.P.R.N. Primary Care Physician: Mike Cruz M.D. HISTORY AND PHYSICAL CHIEF COMPLAINT Foot infection. HISTORY OF PRESENT ILLNESS The patient is a 67-year-old female with past medical history of diabetes, peripheral arterial disease, hypertension, chronic anemia, coronary artery disease, CHF, cerebrovascular accident, who presented to the emergency department for evaluation of the above. History is obtained from chart review and discussion with the ER staff. The patient is a poor historian. History is also obtained from the patient's son, Gildardo Green, who is at the bedside. The patient has apparently had a wound on the plantar surface of her left foot since approximately July of 2016. Home health has been seeing the patient regarding this wound. They come about once a week. However, per the son, the patient does not always answer the door. He is at work so their care has been somewhat intermittent in nature. The family has been putting "antibiotic honey" on the wound, although the patient's son states that home health did not recommend that particular treatment because it was not prescribed by a physician. The patient's son's ex-girlfriend reportedly changed the dressing to the foot on February 27, 2017 and applied the "antibiotic honey". The following day (February 28) the patient's son thought that the bandage appeared somewhat tight and so he replaced the bandage again applying the "antibiotic honey". The patient's son then noted that she seemed somewhat confused on March 01, 2017. He states that it is similar to when her blood sugar has been high in the past. He did not, however, check the blood sugar but he did administer insulin. On March 01, the patient was noted to have decreased appetite. He thought that her speech was somewhat abnormal. He, again attributed this to abnormal blood sugar. Yesterday, she "seemed better". Today, the patient complained of foot pain. The patient's son noticed that the bandage over the foot was somewhat blood soaked. He removed the bandage and noticed that there was now a wound involving the dorsal aspect of the foot. She was brought to the emergency department for further evaluation. There is a possible history of trauma to the foot. The patient's son noticed an overturned chair on March 01, 2017. It is unclear the circumstances of the fall. Again, the patient is a very poor historian. There is no report of fever. She has had some difficulty walking and increased generalized weakness. Upon arrival in the emergency department, the patient's temperature is 96.7. Blood pressure 106/70. Left foot x-ray was done and showed findings concerning for osteomyelitis involving the first metatarsal of the left foot. She was given vancomycin in the emergency department. Dr. Sage agreed to see the patient in consultation. She is being admitted to [facility] for evaluation Unit #: [id number] #: [id number] Patient: GATITO GREEN and further treatment. PAST MEDICAL HISTORY 1. Admission to [facility], September 28, 2016 through October 08, 2016, for sepsis secondary to left first metatarsophalangeal septic arthritis with group B strep with associated cellulitis of the left foot. She was seen in consultation by Vascular and underwent left femoral gtspm-xac-uvnl popliteal bypass on October 05, 2016. She was also seen in consultation by Dr. Padilla of Cardiology. She underwent cardiac catheterization, October 03, that showed an ejection fraction of 45% with LAD noted to have proximal 60 to 70% stenosis. Left circumflex was approximately 90%, 100% of of the obtuse marginal. Right coronary was 100% proximally. The plan per the discharge summary was to allow the foot wound to heal and to have further evaluation as an outpatient. It does not appear that she has followed up with Cardiology. She did see Vascular on one occasion but has not followed up as recommended. 2. Peripheral arterial disease status post left femoropopliteal bypass. 3. Diabetes. The patient's hemoglobin A1C was 15.3 during previous admission. 4. Dementia, likely vascular in origin. The patient's son states that she does not typically know the year but typically knows where she is and who she is. 5. Hypertension. 6. Chronic anemia. 7. Chronic nonanion gap metabolic acidosis secondary to renal tubular acidosis. 8. Congestive heart failure with ejection fraction of 45% noted on cardiac catheterization in September of 2016. 9. Coronary artery disease with cardiac catheterization results noted above. 10. History of cerebrovascular accident. 11. History of osteomyelitis status post toe amputation of the right great toe. PAST SURGICAL HISTORY 1. Right great toe amputation. 2. Throat surgery. 3. Left femoral zpikb-efl-qrpq popliteal bypass. 4. Cardiac catheterization with results as noted above. SOCIAL HISTORY The patient lives with her son. There is no tobacco or alcohol use. FAMILY HISTORY There is no family history of diabetes. ALLERGIES Sulfa and Ibuprofen. HOME MEDICATIONS 1. Plavix 75 mg daily. 2. Accupril 10 mg daily. 3. Colace 100 mg twice daily. 4. Levemir 15 units subcu at bedtime. 5. Celexa 20 mg daily. 6. Neurontin 600 mg t.i.d. Unit #: [id number] #: [id number] Patient: GATITO GREEN 7. Glucotrol 5 mg daily. REVIEW OF SYSTEMS A complete review of systems is negative except as indicated in the HPI but somewhat limited from the patient due to baseline dementia. PHYSICAL EXAMINATION GENERAL APPEARANCE: The patient is a female who is awake and alert, appears older than the stated age. VITAL SIGNS: Temperature 96.7. Pulse 76. Respirations 14. Blood pressure 106/70. Oxygen saturation 97% on room air. HEENT: The head is atraumatic. Mucous membranes are moist. NECK: Supple. Trachea is midline. CARDIOVASCULAR: Regular rate and rhythm. LUNGS: Clear to auscultation bilaterally with no increased work of breathing. ABDOMEN: Soft, nontender with bowel sounds present in all four quadrants. EXTREMITIES: The right great toe has been previously amputated. The left foot demonstrates a large open area with purulent base in a background of erythema, warmth and tenderness to palpation. There is also an approximately 3 cm circular wound on the plantar aspect of the left foot. I am unable to palpate dorsalis pedis nor posterior tibial pulses. NEUROLOGIC: The patient is oriented to person and place. She follows commands. PSYCHIATRIC: She demonstrates a flat affect but is cooperative. SKIN: Demonstrates the previously described abnormalities. DIAGNOSTIC STUDIES Complete blood count notable for WBC count of 34.4, hemoglobin 10.8, hematocrit 33.4. Comprehensive metabolic panel notable for potassium of 2.7. CO2 was 16. Anion gap is 14. Glucose 176, BUN and creatinine 27 and one respectively. ALT is 45, alkaline phosphatase 28, albumin 2.3. Left foot x-ray shows findings concerning for osteomyelitis involving the first metatarsal of the left foot. Urinalysis notable for 1+ leukocyte esterase, 3+ protein, 2+ blood with 10 to 25 RBCs, 5 to 10 WBCs. Lactic acid is one. ASSESSMENT The patient is a 67-year-old female with: 1. Left foot diabetic ulcer/cellulitis. The patient received vancomycin in the emergency department. 2. Osteomyelitis involving the first metatarsal of the left foot. Dr. Sage has agreed to see the patient in consultation. 3. History of peripheral arterial disease status post left femoropopliteal bypass. The patient has not followed up with Vascular. I am unable to palpable pulses today. 4. Hypokalemia. 5. Hypertension. 6. Chronic anemia. The patient's hemoglobin was 9.6 on October 08, 2016. It is 10.8 today. 7. Coronary artery disease as noted on cardiac catheterization. The patient has not followed up with Cardiology. 8. Congestive heart failure with an ejection fraction of 45% noted on cardiac catheterization done in September of 2016. 9. History of cerebrovascular accident. 10. Dementia. PLAN Unit #: [id number] #: [id number] Patient: GATITO GREEN 1. Admit to intermediate level. 2. NPO except medications until seen by Dr. Sage. 3. Blood cultures x2. 4. Wound culture and sensitivity. 5. Vancomycin IV and Zosyn IV for ulcer and possible osteomyelitis pending further workup. 6. Consult Dr. Angeles regarding peripheral arterial disease. 7. Check magnesium level. 8. Replace potassium. 9. EKG and chest x-ray as part of preoperative evaluation. 10. Check INR. 11. PRN Dilaudid. 12. PRN Zofran. 13. Consult Dr. Padilla regarding cardiac clearance. 14. Low dose sliding scale insulin with Accu-Cheks. 15. Repeat labs including magnesium in the morning. 16. Sepsis protocol with repeat lactic acid. 17. Additional workup and consultants based on above. Dictated by LaSasha Harper TD: 03/04/2017 13:32 JOB #: [id number] HISTORY AND PHYSICAL Page 1 of 1 X La Young MD HISTORY AND PHYSICAL
--- NOTE | ~2017-03-04 | US83 ---
[facility] A Service of [facility] RADIOLOGY TEXT RESULTS PATIENT: GATITO GREEN LOCATION: [facility] 472-01 : [birth year] UNIT #: [id number] AGE: [address]: Nida Robins MD SEX: F ORDER DR: [id number] [facility] [address]. [place], [place] [address] [id number] I MR#: [id number] Acc #: [id number] NAME: GATITO GREEN : 1950 SEX: F STUDY DATE/TIME: 03/04/2017 UNIT: [facility] ROOM: [facility] STUDY DESCRIPTION: US LE [employer] Attending Physician: Nida Robins M.D. Ordering Physician: Eleuterio Angeles M.D. Primary Care Physician: Mike Cruz M.D. MEDICAL IMAGING REPORT This report is preliminary unless electronic signature is present REVISED REPORT DATE OF EXAM 03/04/17 REFERRING PROVIDER Eleuterio Angeles MD REASON FOR EXAM Peripheral arterial disease, history of left fem-pop bypass graft. EXAM Left lower extremity graft surveillance ultrasound. FINDINGS The left common femoral artery is the inflow vessel that appears to be widely patent and a velocity of 258 cm/sec. The profunda femoral artery is widely patent with a velocity of 69 cm/sec. The bypass graft is noted from proximal to distal and appears to be widely patent throughout its course. The proximal anastomosis velocity is 235 cm/sec, mid-thigh graft velocity 98 cm/sec and distal anastomosis velocity 106 cm/sec. Outflow via the popliteal artery is patent with a velocity of 343 cm/sec, posterior tibial artery at the ankle 88 cm/sec, and anterior tibial artery 83 cm/sec. IMPRESSION Patent left femoral to popliteal artery bypass with slightly elevated velocities at the common femoral artery and proximal anastomosis, as well as the outflow and the popliteal artery concerning for possible stenosis. There is patent outflow via the tibial vessels with normal velocities and waveforms. [facility] A Service of [facility] RADIOLOGY TEXT RESULTS PATIENT: GATITO GREEN LOCATION: [facility]- : [birth year] UNIT #: [id number] AGE: [address]: Nida Robins MD SEX: F ORDER DR: *FACILITY MODIFIED. Dictated by... Olga Kohler M.D. THIS IS AN ELECTRONICALLY VERIFIED REPORT Olga Kohler M.D. at 03/13/2017 7:59 AM VIR[place]/edmond TD: 03/05/2017 20:38 JOB #: [id number] CC: Red/rosenda Please Delete MEDICAL IMAGING REPORT Page 1 of 1 COPY
--- NOTE | ~2017-03-04 | OR ---
Unit #: [id number] #: [id number] Patient: GATITO GREEN [id number] [address] [place], [place] [address] [id number] I MR#: [id number] NAME: GATITO GREEN ROOM: 568 Date of Procedure: 03/07/2017 Admission Date: 03/04/2017 Surgeon: Luis Carlos Sage M.D. : 1950 Attending Physician: Nida Robins M.D. Primary Care Physician: Mike Cruz M.D. OPERATIVE REPORT PREOPERATIVE DIAGNOSIS Left foot gangrene. POSTOPERATIVE DIAGNOSIS Left foot gangrene with extension of infection up into left proximal calf. PROCEDURE PERFORMED Left open wyxup-oqp-icto amputation ([id number]). ASSISTANTS MD Jack and Mary Jo. ANESTHESIA General. INDICATIONS FOR SURGERY The patient is a 67-year-old female with insulin-dependent diabetes, peripheral vascular disease, and left foot peripheral neuropathy, presents with severe left foot gangrene. MRI documents an abscess tracking into the lower leg. She has resisted treatment with amputation for the past three days and has not relented. She now has a leukocytosis and erythema and swelling into the calf. The patient has an unsalvageable foot and therefore to undergo yyyxx-vvc-dpgr amputation. DESCRIPTION OF PROCEDURE The patient was taken to the operating room and placed in supine position. General anesthetic was induced. A time-out was performed identifying the left foot as the correct operative extremity. She was placed under general anesthetic. The IV antibiotic protocol was not followed, because she was on preoperative IV antibiotics. The left leg was then prepped and draped in the usual sterile fashion. The leg was exsanguinated with gravity and the thigh tourniquet inflated to 250 mmHg. A transverse incision was made in the mid tibia 14 cm distal to the knee. The subcutaneous tissue was divided. Pus was obtained from the anterior compartment. Aerobic and anaerobic cultures were taken. The tibia was exposed subperiosteally. The sagittal saw was then used to cut the tibia in line with the skin incision. The anterior distal edge was beveled with the saw. The anterior compartment was divided. The anterior vessels were then doubly ligated with 0 silk. The fibula was then exposed subperiosteally and cut 2 cm proximal to the tibia with the microsagittal saw. The amputation knife was then used to divide the posterior soft tissues. The tibial vessels were doubly ligated with 0 silk. The tibial Unit #: [id number] #: [id number] Patient: GATITO GREEN nerve was dissected meticulously and cut proximal to the tibia. The peroneal vessels could not be located. The tourniquet was released. There was essentially no bleeding from the leg. The leg was then irrigated with 2 L of normal saline with care taken to irrigate the anterior compartment. The wound was then packed with Betadine-soaked gauze and the wound was left open. Dressing, sponges, cast padding, and a posterior long leg fiberglass splint were applied. Caleb wraps were applied. The patient was then transported to the recovery room in stable condition. ESTIMATED BLOOD LOSS None. COMPLICATIONS None. SPECIMENS Left leg cultures and left leg. TOURNIQUET TIME Approximately 15 minutes. PLAN The patient will return to the operating room in approximately 4 to 5 days for wound closure and revision of the amputation. Dictated bySasha Perez/ventura TD: 03/07/2017 20:51 JOB #: [id number] OPERATIVE REPORT Page 1 of 1 X Tam Sage MD X PROCEDURE OPERATIVE NOTE
--- NOTE | ~2017-03-04 | A ---
[facility] Nutrition Therapy DATE: 03/05/17 Patient: GATITO GREEN Physician: TONY Address: [address] Room/Bed: [address] [place] [address], Zip: [place] [address] Admit Date: 03/04/17 Date of : [birth year] Height: 5 4 Weight: 139 63.5 NUTRITIONAL ASSESSMENT: REASON: 2 POINTS NUTRITION SCREEN RISK RE: WOUND/ ULCER AND EATING POORLY 67 yo female admitted for foot infection, osteomyelitis PMH: DM, PAD, HTN, chronic anemia, CAD, CHF, CVA, CAD, osteomyelitis s/p right great toe amputation Anthropometrics: Ht: 62" Wt: 63.5 kg BMI: 25.6 Labs: K+ 2.9 Gluc 188 BUN 28 Ca++ 8.3 Alb 1.7 AST 80 Accuchecks 161-164 Meds: Novolog, levemir, colace, MgSO4, KCl, zofran, lopressor I/O & Bowel function: 1310/1800, last BM 03/03 Skin Integrity: Open area left foot/ ?DM ulcer/ osteomyelitis Scabs/ bruises/ scrapes- BUE/ BLE Edema: LLE 2+ Estimated Nutrition Needs: Increased due to skin breakdown and poor intake Diet: NPO (in [place]a [place]), CCD order in chart Assessment: Chart reviewed, events noted. Pt admitted for left foot infection/ necrotizing fasciitis and sepsis, requiring BKA. Pt is refusing amputation per information in chart. RD received nutrition screen points for wound and poor intake. RD spoke with the pt's RN, who reports that the pt has a poor appetite. RD spoke with the pt at bedside. Pt appeared to be in pain, and was unable to report any recent weight loss. Pt did state that she is eating "Okay". RD observed the pt's lunch tray, which she consumed ~30% of. RD encouraged adequate protein-energy intake, and suggested Glucerna supplements. Pt is agreeable. Pt does not seem to be appropriate for diet education with h/o dementia and poor recall of nutritional history. RD will order supplements. Dx: Inadequate protein-energy intake RT decreased appetite, PMH AEB RN reported poor intake, 2 points received from RN nutrition screen. Intervention: 1. Consistent carbohydrate diet 2. Glucerna BID [facility] Nutrition Therapy DATE: 03/05/17 Patient: GATITO GREEN Physician: TONY Address: [address] Room/Bed: [address] [place] [address], Zip: [place] [address] Admit Date: 03/04/17 Date of : [birth year] Height: 5 4 Weight: 139 63.5 Monitoring, Evaluation and Goals: 1. Oral intake; tolerate >50% of meals and supplements 2. Improve labs; glucose, BUN, AST, K+ 3. Weight; prevent unintentional weight loss 4. Skin; promote healing, prevent further breakdown Recommendations: 1. Continue consistent carbohydrate diet, encouraging protein and supplement intake during meal times. 2. Glucerna chocolate BID for supplemental nutrition. 3. Appreciate staff and family encouraging adequate nutritional intake. 4. If the pt's intake continues to be less than 50% of meals, consider adding an appetite stimulant, such as Megace oral, to the pt's medication regimen. Pt is at moderate nutritional risk. RD will follow hospital course. Respectfully, RAKESH LIMA RD, LD [facility] cc: client file
--- NOTE | ~2017-03-04 | CO ---
Unit #: [id number] #: [id number] Patient: GATITO GREEN [id number] [address] [place], [place] [address] [id number] MR#: [id number] NAME: GATITO GREEN ROOM: 568 Age: 67 Sex: F Admission Date: 03/04/2017 : 1950 Attending Physician: Nida Robins M.D. Primary Care Physician: Mike Cruz M.D. CONSULTATION REPORT ADDENDUM HISTORY OF PRESENT ILLNESS The patient presented to the hospital with complaints of foot pain. According to her son, he found her on the floor at home and she was disoriented and confused. He got her back to bed and thought that she was confused because of blood sugar issues. She proceed to lay in bed for a couple of days and then started complaining of worsening foot pain. She has had holes on the bottom of her foot, but when the son pulled the sheath off her, he noticed there was a large ulcer on the top of her left foot, which was reportedly new. She has also had some drainage, but no reported fever or chills. It is unclear if she has had any chest pain, shortness of breath, dizziness, palpitations, or syncope. She is confused on exam and cannot provide a history. Dictated by... VEGA Downs TD: 03/12/2017 03:27 JOB #: [id number] CONSULTATION REPORT Page 1 of 1 X X CONSULTATION REPORT
[~2017-03-04 08:04] MED LIST: ACCUPRIL10 MG PO; ALEVE220 M1 PO; AMITRIP PO; AMITRIPTYLINE H25 MG PO; AMITRYPTYLINE PO; ATARAX PO; AUGMENTIN PO; BAYER CHEWABLE81 MG PO; CDP PO; CELEXA20 M1 PO; CELEXA20 MG PO; CLOPIDOGREL75 MG PO; DILAUDID PEG; DURAGESIC1 EAC1 TD; FERRO-TIME325 MG PO; GLUCOPHAGE500 M1 PO; GLUCOPHAGE500 MG PO; GLUCOTROL PO; HCTZ PO; HYDROCHLOROTH12.5 M1 PO; HYDROCODON-ACE1 EAC5 PO; HYDROXYZINE HCL25 M1 DOB; LORTAB 7.5-3251 EACH PO; MACROBID100 MG PO; MELATONIN5 M1 PO; METFORMIN HCL1000 M1 PO; METFORMIN HCL500 M1 PO; METFORMIN PO; NEURONTIN PO; NEURONTIN600 MG DOB; NEURONTIN600 MG PO; PHENERGAN PEG; PLAVIX PO; QUINAPRIL HCL10 MG PO; QUINAPRIL HCL20 M1 PO; TOPAMAX25 MG PO; TOPROL XL 50 MG50 MG GT; ULTRAM PO; ZOFRAN PEG
[2017-03-04 09:40] LABS: BASOPHIL# 0.1 X10e3 (0-0.3); BASOPHIL% 0.2 % (0-2.5); DIFF IND YES; EOSINOPHIL# 0.1 X10e3 (0-0.7); EOSINOPHIL% 0.4 % (0.0-7.0); HEMATOCRIT 33.4 % (35.0-45.0); HEMOGLOBIN 10.8 gm/dL (12.0-16.0); LYMPHOCYTE# 0.9 X10e3 (1.0-3.5); LYMPHOCYTE% 2.6 % (17.0-45.0); MEAN CELL VOLUME 82.1 FL (83-96); MEAN CORPUSCULAR HEMOGLOBIN 26.7 PG (28-34); MEAN CORPUSCULAR HGB CONC 32.5 g/dL (30-36); MEAN PLATELET VOLUME 8.8 FL (6.5-11.5); MONOCYTE# 1.9 X10e3 (0-1.0); MONOCYTE% 5.7 % (3.0-12.0); NEUTROPHIL# 31.4 X10e3 (1.5-7.1); NEUTROPHIL% 91.1 % (40-75); PLATELET COUNT 420 X10e3 (140-420); RED BLOOD COUNT 4.07 X10e (3.90-5.30); RED CELL DISTRIBUTION WIDTH 18.4 % (11.0-15.5); WHITE BLOOD COUNT 34.4 X10e3 (4.0-10.5)
[2017-03-04 10:01] LABS: ANISOCYTOSIS SL; PLATELET ESTIMATE NORMAL (NORMAL)
[2017-03-04] MEDS ORDERED: CLOPIDOGREL75 MG PO (10:03)
[2017-03-04] MEDS ORDERED: ACCUPRIL PO (10:04)
[2017-03-04] MEDS ORDERED: CELEXA20 MG PO (10:04)
[2017-03-04] MEDS ORDERED: LEVEMIR FL100 UNIT/1 SUBQ (10:04)
[2017-03-04] MEDS ORDERED: DOCUSATE SODIU100 MG PO (10:04)
[2017-03-04 10:05] LABS: ALBUMIN SERUM 2.3 g/dL (3.5-5.0); BILIRUBIN,TOTAL 1.3 mg/dL (0.2-2.0); GLOM FILT RATE Estimated 57.5 mL/min (>60); PROTEIN TOTAL SERUM 8.1 g/dL (6.0-8.3)
[2017-03-04] MEDS ORDERED: NEURONTIN600 MG PO (10:05)
[2017-03-04] MEDS ORDERED: GLUCOTROL PO (10:05)
[2017-03-04] MEDS ORDERED: PATIENT'S PHARMACY (10:05)
[2017-03-04 10:07] LABS: POTASSIUM 2.7 mmol/L (3.5-5.1)
[2017-03-04 10:28] LABS: URINE SOURCE CLEAN CATCH
[2017-03-04 10:33] LABS: URINE APPEARANCE CLEAR; URINE BILIRUBIN NEG (NEG); URINE BLOOD 2+ (NEG); URINE COLOR YELLOW; URINE GLUCOSE NEG (NEG); URINE KETONE TRACE (NEG); URINE LEUKOCYTE ESTERASE 1+ (NEG); URINE NITRATE NEG (NEG); URINE PROTEIN 3+ (NEG); URINE SPECIFIC GRAVITY 1.021 (1.003-1.035)
[2017-03-04 10:35] LABS: CULTURE INDICATED? YES; URINE BACTERIA AUWI NEG (NEGATIVE); URINE SQUAMOUS EPITHELIAL CELL OCC /[HPF]
[2017-03-05 06:05] LABS: BASOPHIL# 0.1 X10e3 (0-0.3); BASOPHIL% 0.2 % (0-2.5); EOSINOPHIL% 0.1 % (0.0-7.0); HEMATOCRIT 27.8 % (35.0-45.0); LYMPHOCYTE# 1.1 X10e3 (1.0-3.5); LYMPHOCYTE% 4.9 % (17.0-45.0); MEAN CELL VOLUME 82.3 FL (83-96); MEAN CORPUSCULAR HEMOGLOBIN 26.5 PG (28-34); MEAN CORPUSCULAR HGB CONC 32.2 g/dL (30-36); MEAN PLATELET VOLUME 8.6 FL (6.5-11.5); MONOCYTE# 1.7 X10e3 (0-1.0); MONOCYTE% 7.2 % (3.0-12.0); NEUTROPHIL# 20.2 X10e3 (1.5-7.1); NEUTROPHIL% 87.6 % (40-75); PLATELET COUNT 401 X10e3 (140-420); RED BLOOD COUNT 3.38 X10e (3.90-5.30); WHITE BLOOD COUNT 23.1 X10e3 (4.0-10.5)
[2017-03-05 06:06] LABS: DIFF IND NO
[2017-03-05 06:29] LABS: ALBUMIN SERUM 1.7 g/dL (3.5-5.0); BILIRUBIN,TOTAL 1.4 mg/dL (0.2-2.0); BUN/CREATININE RATIO 31.11; CALCIUM SERUM 8.3 mg/dL (8.4-10.2); CREATININE SERUM 0.9 mg/dL (0.6-1.4); GLOM FILT RATE Estimated 65.3 mL/min (>60); MAGNESIUM 2.1 mg/dL (1.6-3.0); PROTEIN TOTAL SERUM 5.8 g/dL (6.0-8.3)
[2017-03-05 06:37] LABS: POTASSIUM 2.9 mmol/L (3.5-5.1)
[2017-03-06 05:46] LABS: HEMATOCRIT 24.9 % (35.0-45.0); MEAN CELL VOLUME 82.7 FL (83-96); MEAN CORPUSCULAR HEMOGLOBIN 26.6 PG (28-34); MEAN CORPUSCULAR HGB CONC 32.1 g/dL (30-36); MEAN PLATELET VOLUME 8.7 FL (6.5-11.5); RED BLOOD COUNT 3.02 X10e (3.90-5.30); RED CELL DISTRIBUTION WIDTH 18.3 % (11.0-15.5); WHITE BLOOD COUNT 23.1 X10e3 (4.0-10.5)
[2017-03-06 06:11] LABS: BUN/CREATININE RATIO 24.44; CALCIUM SERUM 8.4 mg/dL (8.4-10.2); CREATININE SERUM 0.9 mg/dL (0.6-1.4); GLOM FILT RATE Estimated 65.3 mL/min (>60)
[2017-03-07 08:15] LABS: HEMATOCRIT 26.5 % (35.0-45.0); HEMOGLOBIN 8.5 gm/dL (12.0-16.0); MEAN CELL VOLUME 82.6 FL (83-96); MEAN CORPUSCULAR HEMOGLOBIN 26.5 PG (28-34); MEAN CORPUSCULAR HGB CONC 32.1 g/dL (30-36); MEAN PLATELET VOLUME 8.8 FL (6.5-11.5); RED BLOOD COUNT 3.21 X10e (3.90-5.30); RED CELL DISTRIBUTION WIDTH 18.6 % (11.0-15.5); WHITE BLOOD COUNT 19.5 X10e3 (4.0-10.5)
[2017-03-07 09:14] LABS: BUN/CREATININE RATIO 18.88; CALCIUM SERUM 8.1 mg/dL (8.4-10.2); CREATININE SERUM 0.9 mg/dL (0.6-1.4); GLOM FILT RATE Estimated 65.3 mL/min (>60); POTASSIUM 3.1 mmol/L (3.5-5.1)
[2017-03-08 06:47] LABS: HEMATOCRIT 29.8 % (35.0-45.0); HEMOGLOBIN 9.7 gm/dL (12.0-16.0); MEAN CELL VOLUME 83.5 FL (83-96); MEAN CORPUSCULAR HEMOGLOBIN 27.2 PG (28-34); MEAN CORPUSCULAR HGB CONC 32.6 g/dL (30-36); MEAN PLATELET VOLUME 8.5 FL (6.5-11.5); RED BLOOD COUNT 3.57 X10e (3.90-5.30); RED CELL DISTRIBUTION WIDTH 17.9 % (11.0-15.5); WHITE BLOOD COUNT 18.1 X10e3 (4.0-10.5)
[2017-03-08 07:22] LABS: BUN/CREATININE RATIO 17.5; CALCIUM SERUM 7.8 mg/dL (8.4-10.2); CREATININE SERUM 0.8 mg/dL (0.6-1.4); GLOM FILT RATE Estimated 75.3 mL/min (>60); MAGNESIUM 1.9 mg/dL (1.6-3.0); POTASSIUM 3.7 mmol/L (3.5-5.1)
[2017-03-09 10:07] LABS: HEMATOCRIT 28.1 % (35.0-45.0); MEAN CELL VOLUME 83.6 FL (83-96); MEAN CORPUSCULAR HEMOGLOBIN 26.7 PG (28-34); MEAN CORPUSCULAR HGB CONC 31.9 g/dL (30-36); MEAN PLATELET VOLUME 8.6 FL (6.5-11.5); RED BLOOD COUNT 3.36 X10e (3.90-5.30); RED CELL DISTRIBUTION WIDTH 17.8 % (11.0-15.5); WHITE BLOOD COUNT 16.9 X10e3 (4.0-10.5)
[2017-03-09 10:33] LABS: BUN/CREATININE RATIO 17.14; CALCIUM SERUM 7.6 mg/dL (8.4-10.2); CREATININE SERUM 0.7 mg/dL (0.6-1.4); GLOM FILT RATE Estimated 88.4 mL/min (>60)
[2017-03-10 06:30] LABS: HEMOGLOBIN 9.8 gm/dL (12.0-16.0); MEAN CELL VOLUME 84.9 FL (83-96); MEAN CORPUSCULAR HEMOGLOBIN 26.8 PG (28-34); MEAN CORPUSCULAR HGB CONC 31.5 g/dL (30-36); MEAN PLATELET VOLUME 8.9 FL (6.5-11.5); RED BLOOD COUNT 3.65 X10e (3.90-5.30); RED CELL DISTRIBUTION WIDTH 18.2 % (11.0-15.5); WHITE BLOOD COUNT 17.1 X10e3 (4.0-10.5)
[2017-03-10 07:12] LABS: BUN/CREATININE RATIO 17.14; CALCIUM SERUM 7.8 mg/dL (8.4-10.2); CREATININE SERUM 0.7 mg/dL (0.6-1.4); GLOM FILT RATE Estimated 88.4 mL/min (>60); MAGNESIUM 1.9 mg/dL (1.6-3.0); POTASSIUM 5.1 mmol/L (3.5-5.1)
[2017-03-11 05:36] LABS: HEMATOCRIT 28.4 % (35.0-45.0); MEAN CELL VOLUME 85.1 FL (83-96); MEAN CORPUSCULAR HEMOGLOBIN 26.8 PG (28-34); MEAN CORPUSCULAR HGB CONC 31.5 g/dL (30-36); MEAN PLATELET VOLUME 8.9 FL (6.5-11.5); RED BLOOD COUNT 3.34 X10e (3.90-5.30); WHITE BLOOD COUNT 12.5 X10e3 (4.0-10.5)
[2017-03-11 06:33] LABS: BUN/CREATININE RATIO 18.33; CALCIUM SERUM 7.8 mg/dL (8.4-10.2); CREATININE SERUM 0.6 mg/dL (0.6-1.4); MAGNESIUM 1.9 mg/dL (1.6-3.0); POTASSIUM 3.9 mmol/L (3.5-5.1)
[2017-03-12 06:01] LABS: HEMATOCRIT 27.4 % (35.0-45.0); HEMOGLOBIN 8.7 gm/dL (12.0-16.0); MEAN CELL VOLUME 84.3 FL (83-96); MEAN CORPUSCULAR HEMOGLOBIN 26.9 PG (28-34); MEAN CORPUSCULAR HGB CONC 31.9 g/dL (30-36); MEAN PLATELET VOLUME 8.3 FL (6.5-11.5); RED BLOOD COUNT 3.25 X10e (3.90-5.30); RED CELL DISTRIBUTION WIDTH 18.4 % (11.0-15.5); WHITE BLOOD COUNT 10.1 X10e3 (4.0-10.5)
[2017-03-12 07:09] LABS: BUN/CREATININE RATIO 17.14; CALCIUM SERUM 7.8 mg/dL (8.4-10.2); CREATININE SERUM 0.7 mg/dL (0.6-1.4); GLOM FILT RATE Estimated 88.4 mL/min (>60); POTASSIUM 4.7 mmol/L (3.5-5.1)
[2017-03-13 06:55] LABS: BASOPHIL# 0.2 X10e3 (0-0.3); EOSINOPHIL# 0.1 X10e3 (0-0.7); EOSINOPHIL% 0.6 % (0.0-7.0); HEMATOCRIT 28.5 % (35.0-45.0); HEMOGLOBIN 9.2 gm/dL (12.0-16.0); LYMPHOCYTE# 1.1 X10e3 (1.0-3.5); LYMPHOCYTE% 7.5 % (17.0-45.0); MEAN CORPUSCULAR HGB CONC 32.2 g/dL (30-36); MEAN PLATELET VOLUME 7.6 FL (6.5-11.5); MONOCYTE# 0.8 X10e3 (0-1.0); MONOCYTE% 5.6 % (3.0-12.0); NEUTROPHIL# 12.7 X10e3 (1.5-7.1); NEUTROPHIL% 85.3 % (40-75); PLATELET COUNT 516 X10e3 (140-420); RED CELL DISTRIBUTION WIDTH 17.7 % (11.0-15.5); WHITE BLOOD COUNT 14.9 X10e3 (4.0-10.5)
[2017-03-13 07:01] LABS: DIFF IND NO
[2017-03-13 07:46] LABS: BUN/CREATININE RATIO 12.85; CALCIUM SERUM 7.7 mg/dL (8.4-10.2); CREATININE SERUM 0.7 mg/dL (0.6-1.4); GLOM FILT RATE Estimated 88.4 mL/min (>60); POTASSIUM 4.2 mmol/L (3.5-5.1)
[2017-03-14 02:26] LABS: BASOPHIL# 0.1 X10e3 (0-0.3); EOSINOPHIL# 0.1 X10e3 (0-0.7); EOSINOPHIL% 0.9 % (0.0-7.0); HEMATOCRIT 28.4 % (35.0-45.0); HEMOGLOBIN 9.1 gm/dL (12.0-16.0); LYMPHOCYTE# 1.4 X10e3 (1.0-3.5); LYMPHOCYTE% 11.8 % (17.0-45.0); MEAN CELL VOLUME 84.4 FL (83-96); MEAN CORPUSCULAR HEMOGLOBIN 27.2 PG (28-34); MEAN CORPUSCULAR HGB CONC 32.2 g/dL (30-36); MEAN PLATELET VOLUME 8.2 FL (6.5-11.5); MONOCYTE% 8.8 % (3.0-12.0); NEUTROPHIL# 9.1 X10e3 (1.5-7.1); NEUTROPHIL% 77.5 % (40-75); PLATELET COUNT 503 X10e3 (140-420); RED BLOOD COUNT 3.36 X10e (3.90-5.30); WHITE BLOOD COUNT 11.8 X10e3 (4.0-10.5)
[2017-03-14 02:28] LABS: DIFF IND NO
[2017-03-14 02:57] LABS: BUN/CREATININE RATIO 11.25; CALCIUM SERUM 7.8 mg/dL (8.4-10.2); CREATININE SERUM 0.8 mg/dL (0.6-1.4); GLOM FILT RATE Estimated 75.3 mL/min (>60); MAGNESIUM 2.2 mg/dL (1.6-3.0)
== END 2017-03-14 16:35 | DRG 853 ==
LOC: CED 08:04 → CEDOF 13:20 → C5C 13:20 → CEDOF 13:48 → CED 13:48 → C5C 17:47 → C4C 03-13 00:05
PROVIDERS: Family Medicine; Internal Medicine; Internal Medicine Cardiovascular Disease; Nurse Practitioner; Orthopaedic Surgery
PROC: 0Y6J0Z1 Detachment at Left Lower Leg, High, Open Approach (ICD-10-PCS; 2017-03-07)
PROC: 05H333Z Insertion of Infusion Device into Right Innominate Vein, Percutaneous Approach (ICD-10-PCS; 2017-03-07)
PROC: B54MZZA Ultrasonography of Right Upper Extremity Veins, Guidance (ICD-10-PCS; 2017-03-07)
PROC: 30233N1 Transfusion of Nonautologous Red Blood Cells into Peripheral Vein, Percutaneous Approach (ICD-10-PCS; principal; 2017-03-07 17:00)
PROC: 0Y6J0Z1 Detachment at Left Lower Leg, High, Open Approach (ICD-10-PCS; 2017-03-12)
DX: A41.02 Sepsis due to Methicillin resistant Staphylococcus aureus (principal); E10.10 Type 1 diabetes mellitus with ketoacidosis without coma; E43 Unspecified severe protein-calorie malnutrition; N17.9 Acute kidney failure, unspecified; E11.52 Type 2 diabetes mellitus with diabetic peripheral angiopathy with gangrene; E87.1 Hypo-osmolality and hyponatremia; I50.22 Chronic systolic (congestive) heart failure; I11.0 Hypertensive heart disease with heart failure; L03.116 Cellulitis of left lower limb; E11.621 Type 2 diabetes mellitus with foot ulcer; Z79.4 Long term (current) use of insulin; I25.10 Atherosclerotic heart disease of native coronary artery without angina pectoris; F01.50 Vascular dementia, unspecified severity, without behavioral disturbance, psychotic disturbance, mood disturbance, and anxiety; E11.42 Type 2 diabetes mellitus with diabetic polyneuropathy; F17.210 Nicotine dependence, cigarettes, uncomplicated; Z79.02 Long term (current) use of antithrombotics/antiplatelets; Z88.2 Allergy status to sulfonamides; Z91.040 Latex allergy status; E87.6 Hypokalemia; Z86.73 Personal history of transient ischemic attack (TIA), and cerebral infarction without residual deficits; D64.9 Anemia, unspecified; A40.1 Sepsis due to streptococcus, group B
CPT/HCPCS: 36415; 71010; 73630; 73720; 80048; 80053; 80202; 81003; 82947; 83036; 83605; 83735; 83880; 84132; 85025; 85027; 85730; 86850; 86900; 86901; 86923; 87040; 87070; 87075; 87077; 87086; 87186; 87205; 88307; 93005; 93922; 93926; 94760; 96374; 96375; 97110; 97163; 97164; 97530; 99285; A9577; G8978-GP; G8979-GP; J0330; J0690; J1170; J1650; J1815; J2270; J2405; J2543; J2710; J3010; J3370; J3475; P9016